=== PATIENT | male | born 1970 ===

== ENCOUNTER 2018-04-13 05:18 | Emergency (ER) | payer SELFPAY ==
[2018-04-13 05:28] VITALS: BMI 27.4
[2018-04-13 05:31] VITALS: TEMP 98.1
[2018-04-13 06:19] LABS: BASO % 0.7 % (0.0-2.0); EOS % 0.2 % (0.0-4.0); HEMOGLOBIN 15.2 g/dL (12.0-18.0); LYMPH # 0.9 K/uL (1.0-4.3); LYMPH % 13.9 % (20.0-40.0); MEAN CELL VOLUME 91.6 fl (80.0-94.0); MEAN CORPUSCULAR HEMOGLOBIN 32.3 pg (27.0-31.0); MEAN CORPUSCULAR HGB CONC 35.3 g/dL (33.0-37.0); MEAN PLATELET VOLUME 9.5 fl (7.2-11.7); MONO # 0.4 K/uL (0.0-0.8); MONO % 6.2 % (0.0-10.0); NEUT # 4.9 K/uL (1.8-7.0); RBC 4.7 Mil/uL (4.40-5.90); RED CELL DISTRIBUTION WIDTH 13.4 % (11.5-14.5); WHITE BLOOD COUNT 6.2 K/uL (4.8-10.8)
--- NOTE | 2018-04-13 06:23 | ED PDOC ---
HPI: Hypertension/Hypotension Time Seen by Provider: 04/13/18 05:41 Chief Complaint (Nursing): Palpitations Chief Complaint (Provider): Palpitations History Per: Patient History/Exam Limitations: no limitations Onset/Duration Of Symptoms: Intermittent Episodes (since 010) Current Symptoms Are (Timing): Intermittent Episodes Additional Complaint(s): 47 year old male presents to the ED for evaluation of intermittent episodes of palpitations and anxiety since 0100 this morning. Patient reports the episodes are quick, but are associated with light headedness, nervousness and numbness in his fingers / hands. Otherwise, denies chest pain, syncope, dizziness, headache, fever, or bleeding. PMD: Robby Perez V Past Medical History Reviewed: Historical Data, Nursing Documentation, Vital Signs Vital Signs: Last Vital Signs Temp 98.1 F 04/13/18 05:27 Pulse 119 H 04/13/18 05:27 Resp 18 04/13/18 05:27 BP 164/116 H 04/13/18 05:27 Pulse Ox 96 04/13/18 05:27 - Medical History PMH: Depression, HTN Denies: Diabetes, Hepatitis, HIV, Seizures, Sexually Transmitted Disease - Surgical History Surgical History: Cholecystectomy (1999) - Family History Family History: States: Unknown Family Hx - Immunization History Hx Tetanus Toxoid Vaccination: No Hx Influenza Vaccination: No Hx Pneumococcal Vaccination: No - Home Medications Home Medications: Ambulatory Orders Medication Instructions Recorded Enalapril Maleate [Enalapril] 1 tab PO DAILY 07/10/15 Amlodipine Besylate 5 mg PO DAILY 07/20/15 - Allergies Allergies/Adverse Reactions: Allergies Allergy/AdvReac Type Severity Reaction Status Date / Time No Known Allergies Allergy Verified 04/13/18 05:53 Review of Systems ROS Statement: Except As Marked, All Systems Reviewed And Found Negative Constitutional: Negative for: Fever Cardiovascular: Positive for: Palpitations, Light Headedness. Negative for: Chest Pain Neurological: Positive for: Numbness (intermittent in fingers and hands). Negative for: Headache, Dizziness, Other (syncope) Psych: Positive for: Anxiety Physical Exam - Reviewed Nursing Documentation Reviewed: Yes Vital Signs Reviewed: Yes - Physical Exam Appears: Positive for: No Acute Distress Head Exam: Positive for: ATRAUMATIC, NORMAL INSPECTION, NORMOCEPHALIC Skin: Positive for: Normal Color, Warm, Dry Eye Exam: Positive for: Normal appearance, EOMI, PERRL ENT: Positive for: Normal ENT Inspection Neck: Positive for: Normal, Painless ROM, Supple Cardiovascular/Chest: Positive for: Tachycardia Respiratory: Positive for: Normal Breath Sounds. Negative for: Accessory Muscle Use, Respiratory Distress Gastrointestinal/Abdominal: Positive for: Normal Exam Back: Positive for: Normal Inspection Extremity: Positive for: Normal ROM Neurologic/Psych: Positive for: Alert, Oriented (x3). Negative for: Motor/ Sensory Deficits - Laboratory Results Result Diagrams: 04/13/18 06:05 04/13/18 06:05 - ECG ECG: Positive for: Interpreted By Me, Viewed By Me ECG Rhythm: Positive for: Normal QRS, Sinus Tachycardia. Negative for: ST/T Changes O2 Sat by Pulse Oximetry: 96 (RA) Pulse Ox Interpretation: Normal - Progress Re-evaluation Time: 06:30 Condition: Re-examined, Improved Medical Decision Making Medical Decision Making: Time: 552 Initial Impression: palpitations Ddx: cardiac arrhythmia, anxiety, panic attack Initial Plan: --EKG --BMP --TSH --Trop I --CBC with differential Scribe Attestation: Documented by Sara Garibay acting as a scribe for Paxtno Neumann MD Provider Scribe Attestation: All medical record entries made by the Scribe were at my direction and personally dictated by me. I have reviewed the chart and agree that the record accurately reflects my personal performance of the history, physical exam, medical decision making, and the department course for this patient. I have also personally directed, reviewed, and agree with the discharge instructions and disposition. Disposition - Clinical Impression Clinical Impression: Palpitations, Anxiety - Patient ED Disposition Is Patient to be Admitted: No Doctor Will See Patient In The: Office Counseled Patient/Family Regarding: Studies Performed, Diagnosis, Need For Followup - Disposition Referrals: Robby Perez MD [Primary Care Provider] - Disposition: Routine/Home Disposition Time: 06:30 Condition: GOOD Additional Instructions: ELLYN AKERS, thank you for letting us take care of you today. Your provider was Paxton Neumann MD and you were treated for ANXIETY. The emergency medical care you received today was directed at your acute symptoms. If you were prescribed any medication, please fill it and take as directed. It may take several days for your symptoms to resolve. Return to the Emergency Department if your symptoms worsen, do not improve, or if you have any other problems. Please contact your doctor or call one of the physicians/clinics you have been referred to that are listed on the Patient Visit Information form that is included in your discharge packet. Bring any paperwork you were given at discharge with you along with any medications you are taking to your follow up visit. Our treatment cannot replace ongoing medical care by a primary care provider outside of the emergency department. Thank you for allowing the [facility] team to be part of your care today. If you had an X-Ray or CT scan: A Radiologist will review the ED reading if any change in treatment is needed we will contact you. If you had a blood, urine, or wound culture: It will take several days for the results, if any change in treatment is needed we will contact you. If you had an STI test: It will take 48 hours for the results. Please call after 1 week if you have not heard back. Instructions: Palpitations, Anxiety, Adult (DC) Forms: [employer] (Maldivian)
[2018-04-13 06:27] LABS: BLOOD UREA NITROGEN 13 mg/dl (9-20); CALCIUM 8.7 mg/dL (8.4-10.2); GFR NON-AFRICAN AMERICAN > 60
[2018-04-13] MEDS ORDERED: Potassium Chloride 20 mEq ER Tab PO ONE ×2 (06:28→06:39)
[2018-04-13 06:40] VITALS: BP 128/87; PULSE 85; RESP 20
--- NOTE | 2018-04-13 09:15 | CARD ---
APPROVED REPORT Date of service: 04/13/2018 EKG Measurement Heart [id number] <Conclusion> Sinus tachycardia Minimal voltage criteria for LVH, may be normal variant IVCD abnormal ECG
[2018-04-13 19:27] VITALS: O2SAT 96
== END 2018-04-13 06:53 | disposition home or self-care (01) ==
LOC: H.ER 05:18
DX: R00.2 Palpitations (principal); F41.9 Anxiety disorder, unspecified

== ENCOUNTER 2018-07-01 02:12 | Emergency (ER) | payer SELFPAY ==
[2018-07-01 02:12] VITALS: BMI 27.4
[2018-07-01 02:29] VITALS: TEMP 98.6
[2018-07-01 03:09] LABS: BASO % 0.7 % (0.0-2.0); EOS % 0.5 % (0.0-4.0); HEMOGLOBIN 14.9 g/dL (12.0-18.0); LYMPH # 1.6 K/uL (1.0-4.3); LYMPH % 26.4 % (20.0-40.0); MEAN CELL VOLUME 94.4 fl (80.0-94.0); MEAN CORPUSCULAR HEMOGLOBIN 32.2 pg (27.0-31.0); MEAN CORPUSCULAR HGB CONC 34.1 g/dL (33.0-37.0); MEAN PLATELET VOLUME 9.8 fl (7.2-11.7); MONO # 0.6 K/uL (0.0-0.8); MONO % 10.2 % (0.0-10.0); NEUT # 3.9 K/uL (1.8-7.0); NEUT % 62.2 % (50.0-75.0); NRBC % 0.2 % (0.0-0.0); RBC 4.61 Mil/uL (4.40-5.90); RED CELL DISTRIBUTION WIDTH 13.3 % (11.5-14.5); WHITE BLOOD COUNT 6.2 K/uL (4.8-10.8)
[2018-07-01 03:19] LABS: ALB/GLOB RATIO 1.2 (1.0-2.1); ALBUMIN 4.4 g/dL (3.5-5.0); ALT/SGPT 79 U/L (21-72); AST/SGOT 46 U/L (17-59); BLOOD UREA NITROGEN 13 mg/dl (9-20); CALCIUM 9.1 mg/dL (8.4-10.2); GFR NON-AFRICAN AMERICAN > 60
--- NOTE | 2018-07-01 03:20 | ED PDOC ---
HPI: Headache Time Seen by Provider: 07/01/18 02:31 Chief Complaint (Nursing): Palpitations Chief Complaint (Provider): Headache History Per: Patient History/Exam Limitations: no limitations Onset/Duration Of Symptoms: Hrs Additional History Per: Patient Additional Complaint(s): 47yo male, history hypertension, comes to ER reporting that around midnight, he developed a sense of headache and anxiety. Patient states he has been unable to sleep since then; patient additionally states he has been noncompliant with his Enalopril and Amlodopine for the past 2 days. Patient denies any nausea, vomiting, weakness and offers no additional complaints. PMD: Dr. Perez Past Medical History Reviewed: Historical Data, Nursing Documentation, Vital Signs Vital Signs: Last Vital Signs Temp 98.6 F 07/01/18 02:23 Pulse 65 07/01/18 03:02 Resp 18 07/01/18 02:23 BP 148/104 H 07/01/18 03:02 Pulse Ox 94 L 07/01/18 02:23 - Medical History PMH: Depression, HTN Denies: Diabetes, Hepatitis, HIV, Seizures, Sexually Transmitted Disease - Surgical History Surgical History: Cholecystectomy (1999) - Family History Family History: States: Unknown Family Hx - Immunization History Hx Tetanus Toxoid Vaccination: No Hx Influenza Vaccination: No Hx Pneumococcal Vaccination: No - Home Medications Home Medications: Ambulatory Orders Medication Instructions Recorded Enalapril Maleate [Enalapril] 1 tab PO DAILY 07/10/15 RX: Amlodipine Besylate 5 mg PO DAILY 07/20/15 - Allergies Allergies/Adverse Reactions: Allergies Allergy/AdvReac Type Severity Reaction Status Date / Time No Known Allergies Allergy Verified 07/01/18 02:23 Review of Systems ROS Statement: Except As Marked, All Systems Reviewed And Found Negative Eyes: Negative for: Vision Change Gastrointestinal: Negative for: Nausea, Vomiting Neurological: Positive for: Headache. Negative for: Weakness, Numbness Psych: Positive for: Anxiety Physical Exam - Reviewed Nursing Documentation Reviewed: Yes Vital Signs Reviewed: Yes - Physical Exam Appears: Positive for: Non-toxic, No Acute Distress Head Exam: Positive for: ATRAUMATIC, NORMAL INSPECTION, NORMOCEPHALIC Skin: Positive for: Normal Color Eye Exam: Positive for: Normal appearance Neck: Positive for: Normal, Supple Cardiovascular/Chest: Positive for: Regular Rate, Rhythm Respiratory: Positive for: Normal Breath Sounds Gastrointestinal/Abdominal: Positive for: Normal Exam, Soft Back: Positive for: Normal Inspection Extremity: Positive for: Normal ROM. Negative for: Pedal Edema Neurologic/Psych: Positive for: Alert, Oriented. Negative for: Motor/Sensory Deficits - Laboratory Results Result Diagrams: 07/01/18 03:06 07/01/18 03:06 - ECG O2 Sat by Pulse Oximetry: 94 (RA) Medical Decision Making Medical Decision Making: Impression: 47yo male with nonspecific headache in setting on uncontrolled hypertension Plan: * Labs * EKG * Amlodopine 5mg PO * Enalapril 10mg PO * K-Dur 20meq PO * KCl 10meq/100ml IV Labs reviewed no sig abnormality with exception of depressed potassium BP shows improvement and patient feels improved Stable upon discharge. Provider impressed need for compliance with BP meds to patient upon discharge DX Hypertension, Hypokalemia Improved Scribe Attestation: Documented by Alberta Wilson, acting as a scribe for Severo Calderon MD Provider Scribe Attestation: All medical record entries made by the Scribe were at my direction and personally dictated by me. I have reviewed the chart and agree that the record accurately reflects my personal performance of the history, physical exam, medical decision making, and the department course for this patient. I have also personally directed, reviewed, and agree with the discharge instructions and disposition. Disposition - Clinical Impression Clinical Impression: Hypertension, Hypokalemia - Disposition Disposition: Routine/Home Disposition Time: 05:45 Condition: STABLE Instructions: Hypokalemia, Medicines for High Blood Pressure Forms: [employer] (Japanese) Print Language: KENYAN
[2018-07-01] MEDS ORDERED: Potassium CL 10 MEQ/50 ML 50 ML IVPB ONE (03:21)
[2018-07-01] MEDS ORDERED: Potassium Chloride 20 mEq ER Tab PO ONE ×2 (03:22→03:31)
[2018-07-01] MEDS ORDERED: Potassium CL 10 MEQ/50 ML 50 ML ONE (03:32)
[2018-07-01 04:35] VITALS: PULSE 66
[2018-07-01 05:39] VITALS: BP 139/86; RESP 12
--- NOTE | 2018-07-01 11:16 | CARD ---
APPROVED REPORT Date of service: 07/01/2018 EKG Measurement Heart [id number] <Conclusion> Normal sinus rhythm Moderate voltage criteria for LVH, may be normal variant Nonspecific T wave abnormality Abnormal ECG
[2018-07-04 21:25] VITALS: O2SAT 94
== END 2018-07-01 05:40 | disposition home or self-care (01) ==
LOC: H.ER 02:12
DX: I10 Essential (primary) hypertension (principal); E87.6 Hypokalemia; F41.9 Anxiety disorder, unspecified
CPT/HCPCS: 80053; 84484; 85025; 93005; 96365; 99284; J2405; J3480

== ENCOUNTER 2018-08-24 22:39 | Emergency (ER) | payer SELFPAY ==
[2018-08-24 22:39] VITALS: BMI 27.4
[2018-08-24 22:54] VITALS: TEMP 98.3; O2SAT 99
--- NOTE | 2018-08-24 23:30 | ED PDOC ---
HPI: Back Time Seen by Provider: 08/24/18 23:00 Chief Complaint (Nursing): Male Genitourinary Chief Complaint (Provider): Back Pain History Per: Patient History/Exam Limitations: no limitations Onset/Duration Of Symptoms: Days (x14), Worse Since (today) Previous Symptoms: Back Pain Additional Complaint(s): 47 y/o male with history of hypertension presents to ER for evaluation of intermittent right sided lower back/flank pain for the past 2 weeks. Patient reports worsening of pain with moving and states today pain is worse than it has been in the past 2 weeks. He states he also feels pain radiating to right lower quadrant. Patient denies nausea, vomiting, urinary symptoms, fevers or taking any medicine to treat pain. PMD: Faye Crespo Past Medical History Reviewed: Historical Data, Nursing Documentation, Vital Signs Vital Signs: Last Vital Signs Temp 98.3 F 08/24/18 22:42 Pulse 78 08/24/18 22:42 Resp 18 08/24/18 22:42 BP 150/110 H 08/24/18 22:42 Pulse Ox 99 08/24/18 22:42 - Medical History PMH: Depression, HTN Denies: Diabetes, Hepatitis, HIV, Seizures, Sexually Transmitted Disease - Surgical History Surgical History: Cholecystectomy (1999) - Family History Family History: States: Unknown Family Hx - Social History Current smoker - smoking cessation education provided: Yes Alcohol: None Drugs: Denies - Immunization History Hx Tetanus Toxoid Vaccination: No Hx Influenza Vaccination: No Hx Pneumococcal Vaccination: No - Home Medications Home Medications: Ambulatory Orders Medication Instructions Recorded Enalapril Maleate [Enalapril] 1 tab PO DAILY 07/10/15 Amlodipine Besylate 5 mg PO DAILY 07/20/15 Cyclobenzaprine [Cyclobenzaprine 10 mg PO BID #15 tab 08/25/18 HCl] Ibuprofen [Motrin Tab] 600 mg PO Q6 #30 tab 08/25/18 Lidocaine 1 each TP DAILY #10 adh..patch 08/25/18 - Allergies Allergies/Adverse Reactions: Allergies Allergy/AdvReac Type Severity Reaction Status Date / Time No Known Allergies Allergy Verified 07/01/18 02:23 Review of Systems ROS Statement: Except As Marked, All Systems Reviewed And Found Negative Constitutional: Negative for: Fever Gastrointestinal: Positive for: Abdominal Pain (Right quadrant). Negative for: Nausea, Vomiting Genitourinary Male: Negative for: Dysuria, Hematuria Musculoskeletal: Positive for: Back Pain (Right sided) Physical Exam - Reviewed Nursing Documentation Reviewed: Yes Vital Signs Reviewed: Yes - Physical Exam Appears: Positive for: Non-toxic, No Acute Distress Head Exam: Positive for: ATRAUMATIC, NORMOCEPHALIC Skin: Positive for: Normal Color, Warm, Dry Neck: Positive for: Normal, Painless ROM, Supple Cardiovascular/Chest: Positive for: Regular Rate, Rhythm. Negative for: Murmur Respiratory: Positive for: Normal Breath Sounds. Negative for: Wheezing Gastrointestinal/Abdominal: Positive for: Normal Exam, Soft. Negative for: Tenderness Back: Positive for: Other (Right flank tenderness). Negative for: L CVA Tenderness, R CVA Tenderness Extremity: Positive for: Normal ROM. Negative for: Pedal Edema, Swelling Neurologic/Psych: Positive for: Alert, Oriented (x3) - Laboratory Results Result Diagrams: 08/24/18 23:57 08/24/18 23:55 - ECG O2 Sat by Pulse Oximetry: 99 (RA) Pulse Ox Interpretation: Normal Medical Decision Making Medical Decision Makin A/P: 47 y/o male with history of hypertension presents with back pain --Patient is comfortable appearing, hypertense but likely response due to pain --Differential includes but not limited to musculoskeletal back pain vs. renal colic --CT abdomen/Pelvis --BMP --CBC --Flexeril --Toradol --Urinalysis 2355 CT Abdomen/Pelvis FINDINGS: LUNG BASES: The lung bases appear clear. No pleural effusions are seen. LIVER: Unremarkable. GALLBLADDER AND BILE DUCTS: There has been prior cholecystectomy. No biliary ductal dilatation is evident. PANCREAS: Unremarkable. SPLEEN: Unremarkable. ADRENAL GLANDS: Unremarkable. KIDNEYS, URETERS, AND BLADDER: The kidneys appear within normal limits. There is no hydronephrosis or hydroureter. No urinary calculi are seen. STOMACH AND BOWEL: Unremarkable appearance of the stomach and bowel. No evidence of bowel obstruction. No evidence suggesting enteritis or colitis. APPENDIX: No evidence of acute appendicitis on CT examination. PERITONEUM: No free fluid. No free air. LYMPH NODES: No lymphadenopathy is evident. REPRODUCTIVE: Unremarkable as visualized. VASCULATURE: No evidence of abdominal aortic aneurysm. BONES: No aggressive appearing osseous lesion. No acute osseous pathology evident. Limbus vertebrae are seen along the anterior-superior endplates of L3, L4 and L5; which represent normal variant findings. IMPRESSION: 1. No acute intra-abdominal or pelvic abnormality. 2. Status post cholecystectomy. 115AM --Patient feeling better --Advised patient to followup with PMD --Well appearing upon discharge Scribe Attestation: Documented by Roselia Duenas, acting as a scribe for Clay Tyson MD. Provider Scribe Attestation: All medical record entries made by the Scribe were at my direction and personally dictated by me. I have reviewed the chart and agree that the record accurately reflects my personal performance of the history, physical exam, medical decision making, and the department course for this patient. I have also personally directed, reviewed, and agree with the discharge instructions and disposition. Disposition - Clinical Impression Clinical Impression: Back pain - Disposition Referrals: Faye Crespo MD [Medical Doctor] - Disposition: Routine/Home Disposition Time: 01:18 Condition: STABLE Prescriptions: Cyclobenzaprine [Cyclobenzaprine HCl] 10 mg PO BID #15 tab Ibuprofen [Motrin Tab] 600 mg PO Q6 #30 tab Lidocaine 1 each TP DAILY #10 adh..patch Instructions: Low Back Pain (DC), Muscle Spasms (DC) Forms: [employer] (Amharic) Print Language: KOSOVAN
[2018-08-25 00:09] LABS: BASO % 0.6 % (0.0-2.0); EOS % 0.3 % (0.0-4.0); HEMOGLOBIN 15.2 g/dL (12.0-18.0); LYMPH # 0.9 K/uL (1.0-4.3); LYMPH % 14.2 % (20.0-40.0); MEAN CELL VOLUME 92.1 fl (80.0-94.0); MEAN CORPUSCULAR HEMOGLOBIN 32.4 pg (27.0-31.0); MEAN CORPUSCULAR HGB CONC 35.2 g/dL (33.0-37.0); MEAN PLATELET VOLUME 10.8 fl (7.2-11.7); MONO # 0.6 K/uL (0.0-0.8); MONO % 9.5 % (0.0-10.0); NEUT # 4.8 K/uL (1.8-7.0); NEUT % 75.4 % (50.0-75.0); RBC 4.69 Mil/uL (4.40-5.90); RED CELL DISTRIBUTION WIDTH 13.1 % (11.5-14.5); WHITE BLOOD COUNT 6.4 K/uL (4.8-10.8)
[2018-08-25 00:14] LABS: URINE BACTERIA RARE (<OCC); URINE BILIRUBIN NEGATIVE (NEGATIVE); URINE BLOOD NEGATIVE (NEGATIVE); URINE CLARITY CLOUDY (Clear); URINE COLOR YELLOW (YELLOW); URINE GLUCOSE (UA) NEG (NEGATIVE); URINE LEUKOCYTE ESTERASE NEG Leu/uL (Negative); URINE PROTEIN 30 mg/dL (NEGATIVE)
[2018-08-25 00:19] LABS: BLOOD UREA NITROGEN 16 mg/dl (9-20); CALCIUM 9.1 mg/dL (8.4-10.2); GFR NON-AFRICAN AMERICAN > 60
[2018-08-25 02:28] VITALS: BP 140/89; PULSE 72; RESP 17
--- NOTE | 2018-08-25 10:24 | CT ---
Date of service: 08/24/2018 PROCEDURE: CT Abdomen and Pelvis without intravenous contrast HISTORY: R flank pain radiating to RLQ COMPARISON: None. TECHNIQUE: Contiguous images were obtained from the domes of the diaphragms to the upper thighs without the administration of intravenous contrast. Oral contrast was not administered. Radiation dose: Total exam DLP = 479.21 mGy-cm. This CT exam was performed using one or more of the following dose reduction techniques: Automated exposure control, adjustment of the mA and/or kV according to patient size, and/or use of iterative reconstruction technique. FINDINGS: LOWER THORAX: Unremarkable. LIVER: Unremarkable. No gross lesion or ductal dilatation. GALLBLADDER AND BILE DUCTS: Prior cholecystectomy with surgical clips in place. PANCREAS: Unremarkable. No gross lesion or ductal dilatation. SPLEEN: Unremarkable. ADRENALS: Unremarkable. No mass. KIDNEYS AND URETERS: Unremarkable. No hydronephrosis. No solid mass. VASCULATURE: Unremarkable. No aortic aneurysm. No aortic atherosclerotic calcification or mural plaque present. BOWEL: Unremarkable. No obstruction. No gross mural thickening. APPENDIX: Unremarkable. Normal appendix. PERITONEUM: Unremarkable. No free fluid. No free air. LYMPH NODES: Unremarkable. No enlarged lymph nodes. BLADDER: Unremarkable. REPRODUCTIVE: Unremarkable. BONES: No acute fracture. OTHER FINDINGS: None. IMPRESSION: No obstructive uropathy or evidence of recently passed genitourinary calculus. No acute abdominal pelvic pathology.
== END 2018-08-25 02:01 | disposition home or self-care (01) ==
LOC: H.ER 22:39
DX: M54.9 Dorsalgia, unspecified (principal); R10.9 Unspecified abdominal pain; F32.9 Major depressive disorder, single episode, unspecified; I10 Essential (primary) hypertension
CPT/HCPCS: 74176; 80048; 81003; 85025; 96374; 99283; J1885

== ENCOUNTER 2018-09-19 18:20 | Emergency (ER) | payer SELFPAY ==
[2018-09-19 18:20] VITALS: BMI 27.4
[2018-09-19 18:45] VITALS: BP 133/78; RESP 20; TEMP 99.4; O2SAT 98
[2018-09-19] MEDS ORDERED: DiphenhydrAMINE 50 mg/ml Inj IVP STA (18:51)
[2018-09-19] MEDS ORDERED: Sodium Chloride 0.9% 1,000 ML IV STA (18:52)
[2018-09-19] MEDS ORDERED: DiphenhydrAMINE 50 mg/ml Inj ONE (18:55)
[2018-09-19 19:09] VITALS: PULSE 91
--- NOTE | 2018-09-19 19:09 | ED PDOC ---
HPI: Allergic Reaction Time Seen by Provider: 09/19/18 18:46 Chief Complaint (Nursing): Abnormal Skin Integrity Chief Complaint (Provider): Abnormal Skin Integrity History Per: Patient, [employer] (JULIANA Zepeda) History/Exam Limitations: no limitations Additional Complaint(s): Jeff Akers is a 47 year old male with a past medical history of HTN and depression, who presents to the emergency department complaining of cramping epigastric abdominal pain that radiates up to the chest, associated with x4 episodes of non bloody diarrhea, onset this morning. Patient states that he took Pepto-bismol today at 9am and at 12. He further reports he saw his PMD today, who advised him to continue taking Pepto-bismol. Patient further reports that x1 hour blueprint blocker, he developed a diffuse erythematous rash with pruritus, without shortn ess of breath, chest pain, or throat swelling. He further denies having any fever, chills, history of anaphylactic reactions, rectal bleeding, melena, hematochezia, hematuria, or hematemesis. PMD: Gio Callaway Past Medical History Reviewed: Historical Data, Nursing Documentation, Vital Signs Vital Signs: Last Vital Signs Temp 99.4 F 09/19/18 18:42 Pulse 111 H 09/19/18 18:42 Resp 20 09/19/18 18:42 BP 133/78 09/19/18 18:42 Pulse Ox 98 09/19/18 18:42 - Medical History PMH: Depression, HTN Denies: Diabetes, Hepatitis, HIV, Seizures, Sexually Transmitted Disease - Surgical History Surgical History: Cholecystectomy (1999) - Family History Family History: States: Unknown Family Hx - Immunization History Hx Tetanus Toxoid Vaccination: No Hx Influenza Vaccination: No Hx Pneumococcal Vaccination: No - Home Medications Home Medications: Ambulatory Orders Medication Instructions Recorded Enalapril Maleate [Enalapril] 1 tab PO DAILY 07/10/15 RX: Amlodipine Besylate 5 mg PO DAILY 07/20/15 Cyclobenzaprine [Cyclobenzaprine 10 mg PO BID #15 tab 08/25/18 HCl] RX: Ibuprofen [Motrin Tab] 600 mg PO Q6 #30 tab 08/25/18 RX: Lidocaine 1 each TP DAILY #10 adh..patch 08/25/18 DiphenhydrAMINE [Benadryl] 50 mg PO Q6 PRN #10 cap 09/19/18 Famotidine [Pepcid] 20 mg PO DAILY PRN #10 tab 09/19/18 Methylprednisolone [Medrol Dose 4 mg PO DAILY #21 mg 09/19/18 Pack (21 tabs)] - Allergies Allergies/Adverse Reactions: Allergies Allergy/AdvReac Type Severity Reaction Status Date / Time No Known Allergies Allergy Verified 09/19/18 18:41 Review of Systems Constitutional: Negative for: Fever, Chills Cardiovascular: Positive for: Chest Pain Gastrointestinal: Positive for: Abdominal Pain, Diarrhea. Negative for: Melena, Hematochezia, Hematemesis, Other (rectal bleeding) Genitourinary Male: Negative for: Hematuria Physical Exam - Reviewed Nursing Documentation Reviewed: Yes Vital Signs Reviewed: Yes - Physical Exam Appears: Positive for: Non-toxic, No Acute Distress Head Exam: Positive for: ATRAUMATIC, NORMOCEPHALIC Skin: Positive for: Rash (diffuse erythema and blanching; actively scratching) Eye Exam: Positive for: Normal appearance, EOMI, PERRL ENT: Positive for: Normal ENT Inspection Neck: Positive for: Normal, Painless ROM, Supple Cardiovascular/Chest: Positive for: Regular Rate, Rhythm. Negative for: Murmur Respiratory: Positive for: Normal Breath Sounds. Negative for: Respiratory Distress Gastrointestinal/Abdominal: Positive for: Normal Exam, Soft. Negative for: Tenderness Back: Positive for: Normal Inspection. Negative for: L CVA Tenderness, R CVA Tenderness, Vertebral Tenderness Extremity: Positive for: Normal ROM. Negative for: Pedal Edema, Deformity Neurologic/Psych: Positive for: Alert, Oriented. Negative for: Motor/Sensory Deficits - Laboratory Results Result Diagrams: 09/19/18 19:02 09/19/18 19:02 - ECG ECG: Positive for: Interpreted By Me ECG Rhythm: Positive for: Sinus Rhythm. Negative for: ST/T Changes Rate: 91 O2 Sat by Pulse Oximetry: 98 Disposition - Clinical Impression Clinical Impression: Urticaria, Enteritis, Dyspepsia - Patient ED Disposition Is Patient to be Admitted: No - Disposition Referrals: Gio Callaway MD [Staff Provider] - Disposition: Routine/Home Disposition Time: 20:07 Condition: IMPROVED Additional Instructions: FOLLOW UP WITH DR. CALLAWAY FOR FURTHER EVALUATION RETURN TO ED IMMEDIATELY IF SYMPTOMS WORSEN JEFF AKERS, thank you for letting us take care of you today. Your provider was Magi Moncada MD and you were treated for POSS ALLERGIC REACTION. The emergency medical care you received today was directed at your acute symptoms. If you were prescribed any medication, please fill it and take as directed. It may take several days for your symptoms to resolve. Return to the Emergency Department if your symptoms worsen, do not improve, or if you have any other problems. Please contact your doctor or call one of the physicians/clinics you have been referred to that are listed on the Patient Visit Information form that is included in your discharge packet. Bring any paperwork you were given at discharge with you along with any medications you are taking to your follow up visit. Our treatment cannot replace ongoing medical care by a primary care provider outside of the emergency department. Thank you for allowing the [facility] team to be part of your care today. If you had an X-Ray or CT scan: A Radiologist will review the ED reading if any change in treatment is needed we will contact you. If you had a blood, urine, or wound culture: It will take several days for the results, if any change in treatment is needed we will contact you. If you had an STI test: It will take 48 hours for the results. Please call after 1 week if you have not heard back. Prescriptions: DiphenhydrAMINE [Benadryl] 50 mg PO Q6 PRN #10 cap PRN Reason: itching or rash Famotidine [Pepcid] 20 mg PO DAILY PRN #10 tab PRN Reason: Dyspepsia Methylprednisolone [Medrol Dose Pack (21 tabs)] 4 mg PO DAILY #21 mg Instructions: Hives, Diarrhea in Adolescents and Adults, Stomach Ache and Stom ach Upset Forms: [employer] (Maldivian) Medical Decision Making Medical Decision Making: Time: 1851 Plan: --EKG --CMP --Lipase --CBC with differential --IV insertion --Urinalysis --Sodium Chloride 1,000 ml --Benadryl 50 mg IVP --Pepcid 20 mg IVP --Solu-medrol 125 mg IVP K 3.1 Kdru PO ordered. 1999 On re-evaluation, pt. reports feeling much better. Rash has resolved along with abd pain. Further states no diarrhea while in ED. Advised to f/u with Dr. Callaway for further evaluation but is to return to ED immediately if symptoms worsen. Scribe Attestation: Documented by Carroll Adams, acting as a scribe for Manish Carter Provider Scribe Attestation: All medical record entries made by the Scribe were at my direction and personally dictated by me. I have reviewed the chart and agree that the record accurately reflects my personal performance of the history, physical exam, medical decision making, and the department course for this patient. I have also personally directed, reviewed, and agree with the discharge instructions and disposition.
[2018-09-19 19:22] LABS: BASO % 0.1 % (0.0-2.0); HEMOGLOBIN 15.2 g/dL (12.0-18.0); LYMPH # 0.7 K/uL (1.0-4.3); LYMPH % 8.1 % (20.0-40.0); MEAN CORPUSCULAR HEMOGLOBIN 31.4 pg (27.0-31.0); MEAN CORPUSCULAR HGB CONC 34.5 g/dL (33.0-37.0); MEAN PLATELET VOLUME 10.3 fl (7.2-11.7); MONO # 0.7 K/uL (0.0-0.8); MONO % 7.6 % (0.0-10.0); NEUT # 7.6 K/uL (1.8-7.0); NEUT % 84.2 % (50.0-75.0); NRBC % 0.1 % (0.0-0.0); PLATELET COUNT 154 K/uL (130-400); RBC 4.83 Mil/uL (4.40-5.90); WHITE BLOOD COUNT 9.1 K/uL (4.8-10.8)
[2018-09-19 19:35] LABS: ALB/GLOB RATIO 1.2 (1.0-2.1); ALBUMIN 4.4 g/dL (3.5-5.0); ALT/SGPT 55 U/L (21-72); AST/SGOT 38 U/L (17-59); BLOOD UREA NITROGEN 16 mg/dl (9-20); GFR NON-AFRICAN AMERICAN > 60; LIPASE 89 U/L (23-300)
[2018-09-19] MEDS ORDERED: Potassium Chloride 20 mEq ER Tab PO ONE ×2 (19:44→20:01)
[2018-09-19 20:55] LABS: BASOPHIL 1 % (0-2); LYMPHOCYTE 10 % (20-50); MONOCYTE 8 % (0-10); NEUTROPHIL 81 % (42-75); TOTAL CELLS COUNTED 100
[2018-09-19 20:56] LABS: PLATELET ESTIMATE NORMAL (NORMAL)
[2018-09-19 21:05] LABS: SQUAMOUS EPITHIAL < 1 /hpf (0-5); URINE BACTERIA RARE (<OCC); URINE BILIRUBIN NEGATIVE (NEGATIVE); URINE BLOOD NEGATIVE (NEGATIVE); URINE CLARITY SLIGHTY-CLOUDY (Clear); URINE COLOR YELLOW (YELLOW); URINE GLUCOSE (UA) NEG (NEGATIVE); URINE LEUKOCYTE ESTERASE NEG Leu/uL (Negative); URINE PROTEIN NEGATIVE (NEGATIVE); URINE UROBILINOGEN 0.2-1.0 mg/dL (0.2-1.0)
--- NOTE | 2018-09-20 15:29 | CARD ---
APPROVED REPORT Date of service: 09/19/2018 EKG Measurement Heart [id number] <Conclusion> Normal sinus rhythm Leftward axis Voltage criteria for left ventricular hypertrophy Nonspecific T wave abnormality Abnormal ECG
== END 2018-09-19 23:06 | disposition home or self-care (01) ==
LOC: H.ER 18:20
DX: L50.9 Urticaria, unspecified (principal); K52.9 Noninfective gastroenteritis and colitis, unspecified; R10.13 Epigastric pain; I10 Essential (primary) hypertension; F32.9 Major depressive disorder, single episode, unspecified
CPT/HCPCS: 80053; 81003; 83690; 85025; 93005; 96374; 96375; 99283; J1200; J2930; J7030